=== PATIENT | female | born 1975 | race Caucasian/White ===

== ENCOUNTER 2022-09-25 18:26 | Emergency (ER) | payer BC, MEDICAID ==
[~2022-09-25] VITALS: Ht 162.6 cm; Wt 90.7 kg
[~2022-09-25 18:26] MED LIST: LORA10TA19 PO
[2022-09-25 18:53] VITALS: BP 131/78
[2022-09-25] MEDS ORDERED: LID5T TP (19:46)
[2022-09-25] MEDS ORDERED: CYCL-711 PO (19:46)
[2022-09-25] MEDS ORDERED: NAPR-54 PO (19:46)
--- NOTE | 2022-09-25 19:48 | NUR ---
MEDICATED PER PA ORDER, TOLERATED WELL
[2022-09-25] MEDS: KETOROLAC 30 MG/ML VIAL IM ONE (20:04)
[2022-09-25 20:26] VITALS: BP 142/78
--- NOTE | 2022-09-25 20:26 | NUR ---
Chart checked and completed.
--- NOTE | 2022-09-25 20:26 | NUR ---
Patient discharged with v/s stable. Written and verbal after care instructions given. Patient alert, oriented and verbalized understanding of instructions. Ambulatory with steady gait. All questions addressed prior to discharge. ID band removed. Patient advised to follow up with PMD. Rx of Flexeril, Lidocaine and Naproxen given. Opportunity to ask questions provided and answered. WORK NOTE HANDED TO PATIENT.
== END 2022-09-25 20:26 | disposition home or self-care (01) ==
LOC: MED 18:26
DX: S46.812A Strain of other muscles, fascia and tendons at shoulder and upper arm level, left arm, initial encounter (principal); J45.909 Unspecified asthma, uncomplicated; Z90.710 Acquired absence of both cervix and uterus; Z85.42 Personal history of malignant neoplasm of other parts of uterus; Z79.899 Other long term (current) drug therapy; X58.XXXA Exposure to other specified factors, initial encounter; Y93.89 Activity, other specified; Y92.89 Other specified places as the place of occurrence of the external cause; Y99.8 Other external cause status
CPT/HCPCS: 96372; 99283; J1885

== ENCOUNTER 2023-02-08 18:48 | Emergency (ER) | payer BC, MEDICAID ==
[~2023-02-08] VITALS: Ht 162.6 cm; Wt 92.5 kg
[~2023-02-08 18:48] MED LIST changes: +CYCL-711 PO; +LID5T TP; +NAPR-54 PO
[2023-02-08 19:08] VITALS: BP 138/74
--- NOTE | 2023-02-08 22:01 | NUR ---
Dr. Cummins examining patient.
[2023-02-08] MEDS ORDERED: IBUP-2213 PO (22:13)
[2023-02-08] MEDS ORDERED: LID5T TP (22:13)
[2023-02-08] MEDS ORDERED: CYCL-711 PO (22:13)
[2023-02-08 23:06] VITALS: BP 128/74
--- NOTE | 2023-02-08 23:06 | NUR ---
Patient discharged with v/s stable. Written and verbal after care instructions given and explained. Patient alert, oriented and verbalized understanding of instructions. Ambulatory with steady gait. All questions addressed prior to discharge. ID band removed. Patient advised to follow up with PMD. Rx of Flexeril, Ibuprofen and Lidoderm given. Patient educated on indication of medication including possible reaction and side effects. Opportunity to ask questions provided and answered.
== END 2023-02-08 23:06 | disposition home or self-care (01) ==
LOC: MED 18:48
DX: S63.592A Other specified sprain of left wrist, initial encounter (principal); J45.909 Unspecified asthma, uncomplicated; Z79.899 Other long term (current) drug therapy; X58.XXXA Exposure to other specified factors, initial encounter; Y93.89 Activity, other specified; Y92.89 Other specified places as the place of occurrence of the external cause; Y99.8 Other external cause status
CPT/HCPCS: 99283

== ENCOUNTER 2023-06-30 22:01 | Emergency (ER) | payer BC, MEDICAID ==
[~2023-06-30] VITALS: Ht 162.6 cm; Wt 93.0 kg
[~2023-06-30 22:01] MED LIST changes: +IBUP-2213 PO
[2023-06-30 22:03] VITALS: BP 125/84; PULSE 75; RESP 16; TEMP 97.6; O2SAT 99
--- NOTE | 2023-06-30 22:06 | NUR ---
TO LOBBY A/W BED AMBULATORY
--- NOTE | 2023-06-30 22:20 | NUR ---
SEEN AND EXAMINED BY
[2023-06-30] MEDS ORDERED: HYDROcodone/APAP 7.5/325 MG 1 TAB PO ONE (22:25)
[2023-06-30] MEDS ORDERED: ACET-8905 PO (22:36)
[2023-06-30 22:51] VITALS: BP 125/84; PULSE 75; RESP 16; TEMP 97.6; O2SAT 99
== END 2023-06-30 22:51 | disposition home or self-care (01) ==
LOC: MED 22:01
DX: G89.18 Other acute postprocedural pain (principal); J45.909 Unspecified asthma, uncomplicated; Z98.890 Other specified postprocedural states; Z79.899 Other long term (current) drug therapy; Z85.89 Personal history of malignant neoplasm of other organs and systems
CPT/HCPCS: 99283

== ENCOUNTER 2023-07-02 17:14 | Emergency (ER) | payer BC, MEDICAID ==
[~2023-07-02] VITALS: Ht 162.6 cm; Wt 93.9 kg
[~2023-07-02 17:14] MED LIST changes: +ACET-8905 PO
[2023-07-02 17:53] VITALS: BP 127/86; PULSE 79; RESP 18; TEMP 97.8; O2SAT 100
[2023-07-02 18:57] LABS: BASOPHILS % (AUTO) 0.6 % (0.0-2.0); EOSINOPHILS # (AUTO) 0.2 K/uL (0-0.4); EOSINOPHILS % (AUTO) 3.5 % (0.0-4.0); HEMATOCRIT 41.3 % (36-48); LYMPHOCYTES % (AUTO) 34.9 % (20.5-51.1); MEAN CORPUSCULAR HEMOGLOBIN 30 pg (27-31); MEAN CORPUSCULAR HGB CONC 34 g/dL (33-37); MEAN CORPUSCULAR VOLUME 89.7 fL (80-94); MONOCYTES # (AUTO) 0.4 K/uL (0.8-1.0); MONOCYTES % (AUTO) 6.8 % (1.7-9.3); NEUTROPHILS # (AUTO) 3.1 K/uL (1.8-7.7); NEUTROPHILS % (AUTO) 54.2 % (42.2-75.2); PLATELET COUNT (AUTO) 203 K/uL (140-450); RED CELL DISTRIBUTION WIDTH 14.2 % (11.6-13.7); WHITE BLOOD COUNT (AUTO) 5.7 K/uL (4.8-10.8)
[2023-07-02 19:11] LABS: ALBUMIN 3.5 g/dL (3.4-5.0); ANION GAP 9.9 (8-16); CARBON DIOXIDE 33.3 mmol/L (21-32); CREATININE 0.7 mg/dL (0.6-1.3); POTASSIUM 4.2 mmol/L (3.5-5.1); TOTAL BILIRUBIN 0.2 mg/dL (0.0-1.0)
--- NOTE | 2023-07-02 19:38 | NUR ---
PT TAKEN TO BED 3
[2023-07-02 20:30] VITALS: BP 135/77; PULSE 76; RESP 18; TEMP 97.8; O2SAT 98
--- NOTE | 2023-07-02 20:30 | NUR ---
Patient discharged. Written and verbal after care instructions given and explained. Patient verbalized understanding. Ambulatory with steady gait. All questions addressed prior to discharge. Advised to follow up with PMD.
== END 2023-07-02 20:30 | disposition home or self-care (01) ==
LOC: MED 17:14
DX: R22.1 Localized swelling, mass and lump, neck (principal); J45.909 Unspecified asthma, uncomplicated; Z79.899 Other long term (current) drug therapy; Z85.89 Personal history of malignant neoplasm of other organs and systems
CPT/HCPCS: 36415; 70498; 80053; 81025; 85025; 99285; Q9967; 99284

== ENCOUNTER 2024-04-14 19:51 | Emergency (ER) | payer BC, MEDICAID ==
[~2024-04-14] VITALS: Ht 165.1 cm; Wt 102.1 kg
[~2024-04-14 19:51] MED LIST changes: +NAPR-337 PO; -NAPR-54 PO
[2024-04-14 21:00] VITALS: BP 133/60; PULSE 92; RESP 20; TEMP 97.4; O2SAT 99
[2024-04-14 21:53] VITALS: O2SAT 98
[2024-04-14 22:19] VITALS: BP 133/60; PULSE 92; RESP 20; TEMP 97.4; O2SAT 98
[2024-04-14 22:35] LABS: BASOPHILS # (AUTO) 0.1 K/uL (0.00-0.22); BASOPHILS % (AUTO) 1.4 % (0.0-2.0); EOSINOPHILS # (AUTO) 0.3 K/uL (0-0.4); EOSINOPHILS % (AUTO) 4.2 % (0.0-4.0); HEMATOCRIT 36.1 % (36-48); HEMOGLOBIN 12.4 g/dL (12.0-16.0); LYMPHOCYTES # (AUTO) 2.8 K/uL (2.5-16.5); LYMPHOCYTES % (AUTO) 38.4 % (20.5-51.1); MEAN CORPUSCULAR HEMOGLOBIN 31 pg (27-31); MEAN CORPUSCULAR HGB CONC 34 g/dL (33-37); MONOCYTES # (AUTO) 0.6 K/uL (0.8-1.0); MONOCYTES % (AUTO) 8.6 % (1.7-9.3); NEUTROPHILS # (AUTO) 3.5 K/uL (1.8-7.7); NEUTROPHILS % (AUTO) 47.4 % (42.2-75.2); PLATELET COUNT (AUTO) 244 K/uL (140-450); RED BLOOD CELL COUNT(AUTO) 4.01 MIL/uL (4.20-5.40); RED CELL DISTRIBUTION WIDTH 13.6 % (11.6-13.7); WHITE BLOOD COUNT (AUTO) 7.4 K/uL (4.8-10.8)
[2024-04-14] MEDS: HYDROcodone/APAP 5/325 MG 1 TAB TAB PO ONE (23:09)
[2024-04-14 23:22] LABS: ALBUMIN 3.4 g/dL (3.4-5.0); CALCIUM 8.7 mg/dL (8.5-10.1); CARBON DIOXIDE 26.9 mmol/L (21-32); CREATININE 0.8 mg/dL (0.6-1.3); POTASSIUM 3.9 mmol/L (3.5-5.1); TOTAL BILIRUBIN 0.2 mg/dL (0.0-1.0); TOTAL PROTEIN, SERUM 7.1 g/dL (6.4-8.2)
[2024-04-15] MEDS ORDERED: IBUP-2213 PO (02:03)
[2024-04-15] MEDS ORDERED: DICL100G32 TP (02:04)
[2024-04-15] MEDS ORDERED: ACET-8905 PO (02:04)
[2024-04-19 06:08] LABS: CK-BB 0 % (0); CK-MB 0 % (0-3); CK-MM 100 % (97-100); Macro Type 1 0 % (Not Observed); Macro Type 2 0 % (Not Observed)
== END 2024-04-15 02:16 | disposition home or self-care (01) ==
LOC: MED 19:51
DX: M70.52 Other bursitis of knee, left knee (principal); M70.51 Other bursitis of knee, right knee; R22.43 Localized swelling, mass and lump, lower limb, bilateral; J45.909 Unspecified asthma, uncomplicated; Z79.899 Other long term (current) drug therapy; Y93.89 Activity, other specified
CPT/HCPCS: 36415; 73562; 76881; 80053; 82552; 85025; 93970; 99284

== ENCOUNTER 2024-05-01 00:05 | Emergency (ER) | payer BC, MEDICAID ==
[~2024-05-01] VITALS: Ht 162.6 cm; Wt 99.8 kg
[~2024-05-01 00:05] MED LIST changes: +DICL100G32 TP
[2024-05-01 00:33] VITALS: BP 164/72; PULSE 79; RESP 20; TEMP 96.7; O2SAT 98
[2024-05-01] MEDS ORDERED: KETOROLAC 60 MG/2 ML VIAL IM ONE (02:17)
[2024-05-01] MEDS: KETOROLAC 30 MG/ML VIAL IM ONE (02:25)
[2024-05-01] MEDS ORDERED: ACET-10509 PO (02:55)
[2024-05-01] MEDS ORDERED: IBUP-2213 PO (02:55)
[2024-05-01 02:59] VITALS: BP 142/72; PULSE 78; RESP 20; TEMP 97; O2SAT 98
== END 2024-05-01 02:59 | disposition home or self-care (01) ==
LOC: MED 00:05
DX: S63.682A Other sprain of left thumb, initial encounter (principal); J45.909 Unspecified asthma, uncomplicated; Z79.899 Other long term (current) drug therapy; X58.XXXA Exposure to other specified factors, initial encounter; Y93.89 Activity, other specified; Y92.89 Other specified places as the place of occurrence of the external cause; Y99.8 Other external cause status
CPT/HCPCS: 29125; 73140; 96372; 99283; J1885